=== PATIENT | female | born 1965 | race Caucasian/White ===

== ENCOUNTER 2023-09-01 00:38 | Emergency (ER) | payer MEDICAID ==
[~2023-09-01] VITALS: Ht 157.5 cm; Wt 52.2 kg
[2023-09-01 00:46] VITALS: TEMP 97.8
[2023-09-01 01:21] LABS: BASOPHILS % (AUTO) 0.9 % (0.0-2.0); EOSINOPHILS % (AUTO) 1.1 % (0.0-6.0); HEMATOCRIT 39 % (33-45); LYMPHOCYTES # (AUTO) 1.2 K/uL (0.8-4.8); LYMPHOCYTES % (AUTO) 43.3 % (20.0-44.0); MEAN CORPUSCULAR HEMOGLOBIN 34 PG (26.0-33.0); MEAN CORPUSCULAR HGB CONC 33 g/dl (31.0-36.0); MEAN CORPUSCULAR VOLUME 102 fL (82-100); MONOCYTES # (AUTO) 0.2 K/uL (0.1-1.30); MONOCYTES % (AUTO) 7.9 % (2.0-12.0); NEUTROPHILS # (AUTO) 1.3 K/uL (1.8-8.9); NEUTROPHILS % (AUTO) 46.8 % (43.0-81.0); PLATELET COUNT (AUTO) 154 K/uL (150-450); RED BLOOD CELL COUNT(AUTO) 3.84 MIL/uL (4.0-5.2); RED CELL DISTRIBUTION WIDTH 15.8 % (11.5-15.0); WHITE BLOOD COUNT (AUTO) 2.9 K/uL (4.3-11.0)
[2023-09-01 01:33] LABS: CALCIUM, SERUM 10.8 mg/dL (8.5-10.1); CREATININE 0.8 mg/dL (0.6-1.3)
[2023-09-01 01:35] LABS: INR 0.94 (0.91-1.10)
[2023-09-01] MEDS ORDERED: IOHEXOL-350 100 ML VIAL IV ONE (02:12)
[2023-09-01] MEDS ORDERED: CT SWABBABLE VALVE TRANS SET 1 EA INFUS.SET MC ONE (02:12)
[2023-09-01] MEDS ORDERED: IV NS 0.9% 250 ML IV ONE (02:13)
[2023-09-01] MEDS ORDERED: HYDR-4275 PO (05:46)
[2023-09-01 06:05] VITALS: BP 124/96; O2SAT 100
== END 2023-09-01 06:06 | disposition home or self-care (01) ==
LOC: ER 00:41
DX: S42.011A Anterior displaced fracture of sternal end of right clavicle, initial encounter for closed fracture (principal); M54.2 Cervicalgia; W01.0XXA Fall on same level from slipping, tripping and stumbling without subsequent striking against object, initial encounter; Y93.89 Activity, other specified; Y92.89 Other specified places as the place of occurrence of the external cause; Y99.8 Other external cause status
CPT/HCPCS: 99285; 71250; 71045; 73000; 73030; 70498; 70496; 85025; 80048; 36415; 85730; 70450; J7050; Q9967

== ENCOUNTER 2025-04-18 18:47 | Emergency (ER) | payer MEDICAID ==
[~2025-04-18] VITALS: Ht 154.9 cm; Wt 53.1 kg
[~2025-04-18 18:47] MED LIST: HYDR-4275 PO
[2025-04-18 19:43] LABS: PLATELET COUNT (AUTO) 313 K/uL (150-450); RED BLOOD CELL COUNT(AUTO) 3.83 MIL/uL (4.0-5.2); RED CELL DISTRIBUTION WIDTH 15.0 % (11.5-15.0); WHITE BLOOD COUNT (AUTO) 3.2 K/uL (4.3-11.0)
[2025-04-18 19:45] LABS: CALCIUM, SERUM 10.1 mg/dL (8.5-10.1); CREATININE 0.9 mg/dL (0.6-1.3); SODIUM SERUM 141 mmol/L (136-145); UREA NITROGEN, BLOOD 14 mg/dL (7-18)
[2025-04-18 20:14] VITALS: BP 130/80; TEMP 98.5; O2SAT 99
== END 2025-04-18 20:15 | disposition left against medical advice (07) ==
LOC: ER 18:51
DX: R07.89 Other chest pain (principal); Z85.3 Personal history of malignant neoplasm of breast
CPT/HCPCS: 36415; 71045-TC; 80048-TC; 84484-TC; 85025-TC